=== PATIENT | female | born 1990 | race Two or more races ===

== ENCOUNTER 2024-10-08 07:22 | Emergency (ER) | payer OTHER ==
[~2024-10-08] VITALS: Ht 165.1 cm; Wt 61.2 kg
[2024-10-08] MEDS ORDERED: ORPHENADRINE CITRATE 30 MG/ML AMPUL ONE (09:49)
[2024-10-08] MEDS ORDERED: KETOROLAC TROMETHAMINE 60 MG VIAL IM ONE ×2 (09:50→10:00)
[2024-10-08] MEDS ORDERED: ORPHENADRINE CITRATE 30 MG/ML AMPUL IM ONE (10:00)
== END 2024-10-08 12:23 | disposition left against medical advice (07) ==
LOC: ER 07:22
DX: M54.50 Low back pain, unspecified (principal)